=== PATIENT | female | born 1970 | race African-American/Black ===

== ENCOUNTER 2016-09-27 12:34 | Inpatient (IN) | payer OTHER, MEDICAID ==
[~2016-09-27] VITALS: Ht 172.7 cm; Wt 102.4 kg
[2016-09-27] MEDS ORDERED: SODIUM CHLORIDE 0.9% 250 ML IV ONE (15:07)
[2016-09-27] MEDS ORDERED: ONDANSETRON 4 MG VIAL ONE (15:07)
[2016-09-27] MEDS ORDERED: ERTAPENEM 1,000 MG in SODIUM CHLORIDE 0.9% 50 ML IV ONE (16:20)
[2016-09-27 20:57] VITALS: BP_SYST 132; RESP 16; TEMP 97.8
[2016-09-27] MEDS ORDERED: PHARMACY TO DOSE VANCOMYCIN IV SCH (21:35)
[2016-09-27] MEDS ORDERED: SOD CHLOR 0.9% 1000 ML IV SCH (21:35)
[2016-09-27] MEDS ORDERED: PHARMACY TO DOSE ZOSYN IV SCH (21:35)
[2016-09-27] MEDS ORDERED: PHARMACY TO DOSE LEVAQUIN IV SCH (21:45)
[2016-09-27] MEDS ORDERED: VANCOMYCIN 1,750 MG in SODIUM CHLORIDE 0.9% 500 ML IV ONE (21:55)
[2016-09-27] MEDS: **NOTE TO NURSE XX SCH (22:04)
[2016-09-27] MEDS: LATUDA 120 MG PO SCH (22:07)
[2016-09-27] MEDS: PAROXETINE HCL 20 MG TAB PO SCH (22:37)
[2016-09-27] MEDS: QUETIAPINE XR 200 MG TAB PO SCH (22:38)
[2016-09-27] MEDS: LEVOFLOXACIN 750 MG/150 ML 150 ML IV SCH (23:24)
[2016-09-27 23:41] VITALS: BP_SYST 118; RESP 16; TEMP 96.3
[2016-09-28] MEDS ORDERED: PIPERACIL/TAZO 3.375GM/50ML 50 ML IV SCH
[2016-09-28 01:21] VITALS: Ht 172.7 cm; Wt 102.4 kg
[2016-09-28 04:25] VITALS: BP_SYST 122; RESP 18; TEMP 97.2
[2016-09-28] MEDS ORDERED: MISSING DOSE XX ONE (07:20)
[2016-09-28 07:40] VITALS: BP_SYST 110; RESP 18; TEMP 97.1
[2016-09-28] MEDS: **NOTE TO NURSE XX SCH ×2 (08:00→20:00)
[2016-09-28] MEDS: LEVOFLOXACIN 750 MG/150 ML 150 ML IV SCH (08:53)
[2016-09-28] MEDS ORDERED: SODIUM CHLORIDE 0.9% 1,000 ML IV ONE (10:10)
[2016-09-28 11:21] VITALS: BP_SYST 140; RESP 18; TEMP 97.7
[2016-09-28] MEDS ORDERED: SODIUM CHLORIDE 0.9% 1,000 ML IV SCH (13:05)
[2016-09-28] MEDS ORDERED: SODIUM CHLORIDE 0.9% 500 ML IV ONE (13:05)
[2016-09-28] MEDS ORDERED: LACT RINGERS 1,000 ML IV ONE (15:40)
[2016-09-28] MEDS: POTASSIUM CHLORIDE PREMIX 50 ML IV SCH ×7 (15:48→23:11)
[2016-09-28 16:22] VITALS: BP_SYST 127; RESP 16; TEMP 98
[2016-09-28] MEDS ORDERED: PHARMACY TO DOSE MERREM IV SCH (18:25)
[2016-09-28 20:08] VITALS: RESP 18; TEMP 98.1
[2016-09-28] MEDS: PAROXETINE HCL 20 MG TAB PO SCH (20:59)
[2016-09-28] MEDS: QUETIAPINE XR 200 MG TAB PO SCH (20:59)
[2016-09-28] MEDS ORDERED: QUETIAPINE XR 200 MG TAB PO SCH (21:00)
[2016-09-28] MEDS ORDERED: PAROXETINE HCL 20 MG TAB PO SCH (21:00)
[2016-09-29] VITALS (10 sets, daily range): BP systolic 88–132; RESP 16–24; TEMP 97.2–99.4
[2016-09-29] MEDS: SODIUM CHLORIDE 0.9% 1,000 ML IV SCH ×3 (03:09→16:07)
[2016-09-29] MEDS: **NOTE TO NURSE XX SCH (07:32)
[2016-09-29] MEDS: LATUDA 120 MG PO SCH (07:32)
[2016-09-29] MEDS: ENOXAPARIN 40 MG/0.4 ML SYR SUBQ SCH (08:01)
[2016-09-29] MEDS ORDERED: LORAZEPAM 2 MG/ML VIAL IV ONE (09:15)
[2016-09-29] MEDS ORDERED: SODIUM CHLORIDE 0.9% 1,000 ML IV ONE (13:50)
[2016-09-29] MEDS: DEXTROSE 5% SALINE 0.45% 1,000 ML IV SCH (18:54)
[2016-09-29] MEDS: PAROXETINE HCL 20 MG TAB PO SCH (19:37)
[2016-09-30 04:04] VITALS: BP_SYST 102; RESP 20; TEMP 97.4
[2016-09-30] MEDS: DEXTROSE 5% SALINE 0.45% 1,000 ML IV SCH ×3 (04:50→23:03)
[2016-09-30] MEDS: SODIUM CHLORIDE 0.9% FLUSH BAG 500 ML IV SCH (04:51)
[2016-09-30 07:27] VITALS: BP_SYST 122; RESP 16
[2016-09-30] MEDS: ENOXAPARIN 40 MG/0.4 ML SYR SUBQ SCH (09:08)
[2016-09-30 11:52] VITALS: BP_SYST 106; RESP 16; TEMP 97.3
[2016-09-30 16:04] VITALS: BP_SYST 108; RESP 16; TEMP 97.2
[2016-09-30 20:01] VITALS: BP_SYST 98; RESP 20; TEMP 97.5
[2016-09-30] MEDS: PAROXETINE HCL 20 MG TAB PO SCH (20:08)
[2016-09-30 23:36] VITALS: BP_SYST 110; RESP 20; TEMP 97.4
[2016-10-01] VITALS (11 sets, daily range): BP systolic 100–132; RESP 16–20; TEMP 97.2–98.7
[2016-10-01] MEDS: SODIUM CHLORIDE 0.9% FLUSH BAG 500 ML IV SCH ×2 (05:35→20:37)
[2016-10-01] MEDS: ENOXAPARIN 40 MG/0.4 ML SYR SUBQ SCH (08:41)
[2016-10-01] MEDS: DEXTROSE 5% SALINE 0.45% 1,000 ML IV SCH (14:13)
[2016-10-01] MEDS ORDERED: BISACODYL 10 MG SUPP RECTAL PRN (17:05)
[2016-10-01] MEDS ORDERED: DEXTROSE 5% SALINE 0.45% 1,000 ML IV SCH (17:30)
[2016-10-01] MEDS ORDERED: POLYETHYLENE GLYCOL 17 GM PACKET PO SCH (21:00)
[2016-10-01] MEDS: PAROXETINE HCL 20 MG TAB PO SCH (21:58)
== END 2016-10-02 00:31 | disposition short-term general hospital (02) | DRG 71 ==
LOC: ENRESERVDT → CANRESERV → ENRESERVTM → ER 12:34 → ENPENDDIS 16:25 → EMR 16:25 → 4THE 19:21 → 3NT 09-29 03:32 → UNDODISIN 10-02 00:31
PROVIDERS: ADMIT Family Medicine; ATTEND Family Medicine
CPT/HCPCS: 36415; 36600; 70450; 70551; 71010; 72131; 80048; 80053; 81003; 82140; 82803; 82947; 83605; 83690; 83735; 84484; 85025; 87040; 87088; 93005; 96361; 96365; 96366; 96375; 99222; 99233; 99238